=== PATIENT | female | born 1960 | race Caucasian/White ===

== ENCOUNTER → 2023-10-18 11:42 | Outpatient (REF) | payer BC, SELFPAY | LOC: WDC 11:42 | PROVIDERS: ATTENDING PHYSICIAN Family Medicine | DX: Z12.31 Encounter for screening mammogram for malignant neoplasm of breast (principal) | CPT/HCPCS: 77063; 77067 ==

== ENCOUNTER → 2024-10-19 11:58 | Outpatient (REF) | payer BC, SELFPAY | LOC: WDC 11:58 | PROVIDERS: ATTENDING PHYSICIAN Nurse Practitioner Adult Health; FAMILY PHYSICIAN Family Medicine | DX: Z12.31 Encounter for screening mammogram for malignant neoplasm of breast (principal) | CPT/HCPCS: 77063; 77067 ==